=== PATIENT | male | born 1935 | race Caucasian/White ===

== ENCOUNTER 2017-12-20 18:01 | Inpatient (IN) | payer OTHER ==
[2017-12-20] MEDS: AZTREONAM 2 GM in SOD CHLORIDE 0.9% 100 ML IVPB (00:45)
[2017-12-20] MEDS: SOD CHLORIDE 0.9% 1,000 ML IV (05:00)
[2017-12-20] MEDS ORDERED: NACL 0.9% 3 ML SYG IV (21:30)
[2017-12-20] MEDS ORDERED: BISACODYL (EC) 5 MG TAB PO (21:30)
[2017-12-20] MEDS ORDERED: ONDANSETRON 4 MG INJ IV ×2 (21:30→22:30)
[2017-12-20] MEDS ORDERED: DOCUSATE SODIUM 100 MG CAP PO (21:30)
[2017-12-20] MEDS: FLUCONAZOLE 400 MG/NS (PMX) 200 ML IVPB (21:30)
[2017-12-20] MEDS ORDERED: VANCOMYCIN IV PER PHARMACY XX (21:30)
[2017-12-20] MEDS: SODIUM CHLORIDE 0.9% 1L BAG IV* (21:50)
[2017-12-20] MEDS: CEFEPIME 2GM/50 ML (PMX) 50 ML IVPB (21:51)
[2017-12-20 22:17] LABS: WHITE BLOOD COUNT 23.6 10^3/ul (4.8-10.8)
[2017-12-20 22:17] LABS: ABNORMAL IP MESSAGE 1; HEMATOCRIT 29.3 % (42.0-52.0); HEMOGLOBIN 9.3 g/dl (14.0-18.0); MEAN CORPUSCULAR HEMOGLOBIN 31.5 pg (29.0-33.0); MEAN CORPUSCULAR HGB CONC 31.7 g/dl (32.0-37.0); MEAN CORPUSCULAR VOLUME 99.3 fl (82.0-101.0); MEAN PLATELET VOLUME 12.1 fl (7.4-10.4); NUCLEATED RED BLOOD CELLS% 0.9 /100WBC (0.0-0.0); PLATELET COUNT 497 10^3/UL (140-415); POSITIVE DIFF @See below; RED BLOOD COUNT 2.95 10^6/ul (4.70-6.10); RED CELL DISTRIBUTION WIDTH 29.8 % (11.5-14.5)
[2017-12-20 22:22] LABS: ADD MAN DIFF? YES
[2017-12-20] MEDS ORDERED: ACETAMINOPHEN 325 MG TAB PO (22:30)
[2017-12-20 22:35] LABS: INR 1.53; PROTIME 18.7 Sec (11.9-14.9); PT RATIO 1.5
[2017-12-20 22:36] LABS: PARTIAL THROMBOPLASTIN TIME 45.2 Sec (25.0-35.0)
[2017-12-20] MEDS: VANCOMYCIN 1 GM (PMX) 250 ML IVPB (22:36)
[2017-12-20 22:38] LABS: ALANINE AMINOTRANSFERASE 60 IU/L (13-69); ALBUMIN 4.6 g/dl (3.3-4.9); ALBUMIN/GLOBULIN RATIO 1.64; ALKALINE PHOSPHATASE 68 IU/L (42-121); ANION GAP 18 (8-16); ASPARTATE AMINO TRANSFERASE 41 IU/L (15-46); BILIRUBIN,INDIRECT 3.1 mg/dl (0-1.1); BILIRUBIN,TOTAL 3.1 mg/dl (0.2-1.3); BLOOD UREA NITROGEN 30 mg/dl (7-20); CALCIUM 8.7 mg/dl (8.4-10.2); CARBON DIOXIDE 28 mmol/L (21-31); CHLORIDE 98 mmol/L (97-110); CREATININE 1.47 mg/dl (0.61-1.24); GLUCOSE 126 mg/dl (70-220); POTASSIUM 4.7 mmol/L (3.5-5.1); SODIUM 139 mmol/L (135-144); TOTAL PROTEIN 7.4 g/dl (6.1-8.1)
[2017-12-20 22:48] LABS: ADD UMIC YES; TROPONIN-I 0.115 ng/ml (0.00-0.12); UR ASCORBIC ACID NEGATIVE (NEGATIVE); UR BILIRUBIN (Dip) NEGATIVE (NEGATIVE); UR BLOOD (Dip) NEGATIVE (NEGATIVE); UR CLARITY SLIGHTLY CLOUDY (CLEAR); UR COLOR AMBER (YELLOW); UR GLUCOSE (Dip) NEGATIVE (NEGATIVE); UR KETONES (Dip) NEGATIVE (NEGATIVE); UR LEUKOCYTE ESTERASE (Dip) NEGATIVE Leu/ul (NEGATIVE); UR MUCUS FEW /HPF (NONE SEEN); UR NITRITE (Dip) NEGATIVE (NEGATIVE); UR RBC 0 /HPF (0-5); UR SPECIFIC GRAVITY (Dip) 1.019 (1.003-1.030); UR TOTAL PROTEIN (Dip) 2+ mg/dl (NEGATIVE); UR UROBILINOGEN (Dip) NEGATIVE (NEGATIVE); UR WBC 3 /HPF (0-5)
[2017-12-20 23:02] LABS: CK-MB 1.57 ng/ml (0.0-2.4)
[2017-12-20 23:02] LABS: CREATINE KINASE 141 IU/L (23-200)
[2017-12-20 23:48] LABS: ANISOCYTOSIS 1+ (0-0); BAND NEUTROPHILS #M 4.7 10^3/ul (0.0-0.6); BAND NEUTROPHILS % (M) 20 % (0-4); HYPOCHROMASIA 1+ (0-0); LYMPHOCYTES #M 0.7 10^3/ul (0.8-2.9); LYMPHOCYTES % (M) 3 % (15-51); MICROCYTOSIS 1+ (0-0); MONOCYTE #M 0.9 10^3/ul (0.3-0.9); MONOCYTES % (M) 4 % (0-11); PLATELET ESTIMATE INCREASED; POIKILOCYTOSIS 2+ (0-0); POLYCHROMASIA 3+ (0-0); SEG NEUT #M 18.3 10^3/ul (1.6-7.5); SEGMENTED NEUTROPHILS (M) % 73 % (39-77)
[2017-12-21 00:38] LABS: LACTIC ACID 1.2 mmol/L (0.5-2.0)
[2017-12-21] MEDS: LEVALBUTEROL (NEB) 0.63 MG/3 ML AMP HHN ×6 (00:46→20:22)
[2017-12-21] MEDS: HYDROCODONE/APAP (5/325) TAB PO (01:10)
[2017-12-21] MEDS: AZTREONAM 2 GM in SOD CHLORIDE 0.9% 100 ML IVPB (05:54)
[2017-12-21 06:24] LABS: ADD MAN DIFF? NO
[2017-12-21 06:26] LABS: WHITE BLOOD COUNT 23.5 10^3/ul (4.8-10.8)
[2017-12-21 06:26] LABS: ABNORMAL IP MESSAGE 1; BASOPHIL # 0.1 10^3/ul (0.0-0.1); BASOPHILS % 0.3 % (0.0-2.0); EOSINOPHILS % 0.1 % (0.0-7.0); HEMATOCRIT 26.4 % (42.0-52.0); HEMOGLOBIN 8.6 g/dl (14.0-18.0); LYMPHOCYTES # 0.4 10^3/ul (0.8-2.9); LYMPHOCYTES % 1.7 % (15.0-51.0); MEAN CORPUSCULAR HGB CONC 32.6 g/dl (32.0-37.0); MEAN CORPUSCULAR VOLUME 98.1 fl (82.0-101.0); MEAN PLATELET VOLUME 12.2 fl (7.4-10.4); MONOCYTE # 1.3 10^3/ul (0.3-0.9); MONOCYTES % 5.5 % (0.0-11.0); NEUTROPHIL # 21.4 10^3/ul (1.6-7.5); NEUTROPHILS % 91.5 % (39.0-77.0); NUCLEATED RED BLOOD CELLS # 0.2 10^3/ul (0.0-0.0); NUCLEATED RED BLOOD CELLS% 0.8 /100WBC (0.0-0.0); PLATELET COUNT 443 10^3/UL (140-415); POSITIVE DIFF @See below; RED BLOOD COUNT 2.69 10^6/ul (4.70-6.10); RED CELL DISTRIBUTION WIDTH 29.9 % (11.5-14.5)
[2017-12-21 07:19] LABS: TROPONIN-I 0.137 ng/ml (0.00-0.12)
[2017-12-21 07:36] LABS: ALANINE AMINOTRANSFERASE 60 IU/L (13-69); ALBUMIN 3.6 g/dl (3.3-4.9); ALBUMIN/GLOBULIN RATIO 1.56; ALKALINE PHOSPHATASE 68 IU/L (42-121); ANION GAP 22 (8-16); ASPARTATE AMINO TRANSFERASE 35 IU/L (15-46); BILIRUBIN,INDIRECT 2.4 mg/dl (0-1.1); BILIRUBIN,TOTAL 2.6 mg/dl (0.2-1.3); BLOOD UREA NITROGEN 26 mg/dl (7-20); CALCIUM 7.8 mg/dl (8.4-10.2); CARBON DIOXIDE 21 mmol/L (21-31); CHLORIDE 104 mmol/L (97-110); CREATININE 1.14 mg/dl (0.61-1.24); GLUCOSE 123 mg/dl (70-220); MAGNESIUM 2.2 mg/dl (1.7-2.5); POTASSIUM 4.7 mmol/L (3.5-5.1); SODIUM 142 mmol/L (135-144); TOTAL PROTEIN 5.9 g/dl (6.1-8.1)
[2017-12-21] MEDS: ACETAMINOPHEN 325 MG TAB PO (07:37)
[2017-12-21 07:55] LABS: CREATINE KINASE 87 IU/L (23-200)
[2017-12-21 08:04] LABS: CK INDEX 0.9
[2017-12-21 08:16] LABS: CK-MB 0.78 ng/ml (0.0-2.4)
[2017-12-21] MEDS: AZITHROMYCIN 500MG/NS (PMX) 250 ML IVPB (08:25)
[2017-12-21] MEDS: KETOROLAC 15 MG INJ IV (08:44)
[2017-12-21] MEDS ORDERED: ENOXAPARIN 40 MG/0.4 ML SYG SC (09:00)
[2017-12-21] MEDS: OSELTAMIVIR 75 MG CAP PO ×2 (09:00→21:25)
[2017-12-21] MEDS: CYANOCOBALAMIN 1000 MCG INJ IM (09:00)
[2017-12-21] MEDS: SOD CHLORIDE 0.9% 1,000 ML IV ×2 (09:47→22:17)
[2017-12-21] MEDS: FAMOTIDINE 20 MG TAB PO ×2 (11:34→21:25)
[2017-12-21] MEDS: PIPER-TAZO 3.375 GM IV (PMX) 100 ML IVPB ×3 (11:34→21:25)
[2017-12-21] MEDS: FINASTERIDE 5 MG TAB PO (11:35)
[2017-12-21] MEDS: VANCOMYCIN 750 MG in DEXTROSE 5% 150 ML IVPB ×2 (13:02→23:24)
[2017-12-21] MEDS ORDERED: DILTIAZEM-D5W 125MG/125ML DRIP 125 ML IV (14:30)
[2017-12-21] MEDS ORDERED: SOD CHLORIDE 0.9% 500 ML IV (14:32)
[2017-12-21] MEDS: DIGOXIN 500 MCG INJ IV (14:46)
[2017-12-21] MEDS: SOD CHLORIDE 0.9% 500 ML IV (15:15)
[2017-12-21 15:44] LABS: CREATINE KINASE 200 IU/L (23-200)
[2017-12-21 15:58] LABS: CK INDEX 1.1
[2017-12-21 16:01] LABS: CK-MB 2.19 ng/ml (0.0-2.4)
[2017-12-21] MEDS: FLUCONAZOLE 400 MG/NS (PMX) 200 ML IVPB (21:30)
[2017-12-21] MEDS ORDERED: VANCOMYCIN 1 GM 250 ML IVPB (23:00)
[2017-12-22] MEDS: LEVALBUTEROL (NEB) 0.63 MG/3 ML AMP HHN ×6 (00:45→20:12)
[2017-12-22] MEDS: PIPER-TAZO 3.375 GM IV (PMX) 100 ML IVPB ×3 (05:28→22:00)
[2017-12-22] MEDS: OSELTAMIVIR 75 MG CAP PO ×2 (09:07→21:32)
[2017-12-22] MEDS: FINASTERIDE 5 MG TAB PO (09:08)
[2017-12-22] MEDS: FOLIC ACID 1 MG TAB PO (09:08)
[2017-12-22] MEDS: ALLOPURINOL 100 MG TAB PO (09:08)
[2017-12-22] MEDS: CALCIUM CARBONATE 500 MG CHEW TAB PO ×3 (09:08→18:29)
[2017-12-22] MEDS: FAMOTIDINE 20 MG TAB PO ×2 (09:09→21:32)
[2017-12-22] MEDS: AZITHROMYCIN 500MG/NS (PMX) 250 ML IVPB (10:07)
[2017-12-22] MEDS: ACETAMINOPHEN 325 MG TAB PO ×2 (10:07→21:32)
[2017-12-22] MEDS: DILTIAZEM-D5W 125MG/125ML DRIP 125 ML IV (10:28)
[2017-12-22 10:35] LABS: ADD MAN DIFF? NO
[2017-12-22 10:40] LABS: WHITE BLOOD COUNT 15.2 10^3/ul (4.8-10.8)
[2017-12-22 10:40] LABS: ABNORMAL IP MESSAGE 1; BASOPHILS % 0.3 % (0.0-2.0); HEMATOCRIT 24.4 % (42.0-52.0); LYMPHOCYTES # 0.3 10^3/ul (0.8-2.9); LYMPHOCYTES % 1.8 % (15.0-51.0); MEAN CORPUSCULAR HEMOGLOBIN 32.3 pg (29.0-33.0); MEAN CORPUSCULAR HGB CONC 32.8 g/dl (32.0-37.0); MEAN CORPUSCULAR VOLUME 98.4 fl (82.0-101.0); MONOCYTE # 0.8 10^3/ul (0.3-0.9); MONOCYTES % 5.5 % (0.0-11.0); NEUTROPHIL # 13.9 10^3/ul (1.6-7.5); NEUTROPHILS % 91.6 % (39.0-77.0); NUCLEATED RED BLOOD CELLS # 0.1 10^3/ul (0.0-0.0); NUCLEATED RED BLOOD CELLS% 0.6 /100WBC (0.0-0.0); PLATELET COUNT 408 10^3/UL (140-415); POSITIVE DIFF @See below; RED BLOOD COUNT 2.48 10^6/ul (4.70-6.10); RED CELL DISTRIBUTION WIDTH 29.8 % (11.5-14.5)
[2017-12-22 11:02] LABS: ALANINE AMINOTRANSFERASE 59 IU/L (13-69); ALBUMIN 3.4 g/dl (3.3-4.9); ALBUMIN/GLOBULIN RATIO 1.21; ALKALINE PHOSPHATASE 78 IU/L (42-121); ANION GAP 15 (8-16); ASPARTATE AMINO TRANSFERASE 40 IU/L (15-46); BILIRUBIN,INDIRECT 1.2 mg/dl (0-1.1); BILIRUBIN,TOTAL 1.2 mg/dl (0.2-1.3); BLOOD UREA NITROGEN 25 mg/dl (7-20); CALCIUM 7.3 mg/dl (8.4-10.2); CARBON DIOXIDE 23 mmol/L (21-31); CHLORIDE 106 mmol/L (97-110); CREATININE 1.34 mg/dl (0.61-1.24); GLUCOSE 158 mg/dl (70-220); POTASSIUM 3.8 mmol/L (3.5-5.1); SODIUM 140 mmol/L (135-144); TOTAL PROTEIN 6.2 g/dl (6.1-8.1)
[2017-12-22 11:08] LABS: VANCOMYCIN,TROUGH 6.4 ug/ml (10.0-20.0)
[2017-12-22] MEDS: VANCOMYCIN 750 MG in DEXTROSE 5% 150 ML IVPB (11:30)
[2017-12-22] MEDS: EPOETIN 10000 UNITS/ML VIAL (ONCOLOGY) SC (12:37)
[2017-12-22] MEDS: DIGOXIN 0.125 MG TAB PO (12:38)
[2017-12-22] MEDS: SOD CHLORIDE 0.9% 1,000 ML IV (17:25)
[2017-12-22] MEDS: SOD FERRIC GLUC COMPLX 125 MG in SOD CHLORIDE 0.9% 100 ML IVPB (17:38)
[2017-12-22] MEDS: ATORVASTATIN 20 MG TAB PO (21:32)
[2017-12-22] MEDS: METOPROLOL 25 MG TAB PO (21:33)
[2017-12-22] MEDS: LATANOPROST 0.005% 2.5 ML OPH BOTH EYES (21:33)
[2017-12-22] MEDS: GUAIFENESIN 20 MG/ML 5ML CUP PO (21:41)
[2017-12-22] MEDS: FLUCONAZOLE 400 MG/NS (PMX) 200 ML IVPB (21:42)
[2017-12-22] MEDS: VANCOMYCIN 1.25 GM in SOD CHLORIDE 0.9% 250 ML IVPB (23:18)
[2017-12-23] MEDS: LEVALBUTEROL (NEB) 0.63 MG/3 ML AMP HHN ×5 (00:41→16:21)
[2017-12-23] MEDS: PIPER-TAZO 3.375 GM IV (PMX) 100 ML IVPB ×3 (05:59→22:06)
[2017-12-23 06:38] LABS: ADD MAN DIFF? NO
[2017-12-23 06:43] LABS: WHITE BLOOD COUNT 13.8 10^3/ul (4.8-10.8)
[2017-12-23 06:43] LABS: ABNORMAL IP MESSAGE 1; BASOPHIL # 0.1 10^3/ul (0.0-0.1); BASOPHILS % 0.4 % (0.0-2.0); EOSINOPHILS % 0.1 % (0.0-7.0); HEMATOCRIT 24.3 % (42.0-52.0); HEMOGLOBIN 7.7 g/dl (14.0-18.0); LYMPHOCYTES # 0.5 10^3/ul (0.8-2.9); LYMPHOCYTES % 3.6 % (15.0-51.0); MEAN CORPUSCULAR HEMOGLOBIN 31.6 pg (29.0-33.0); MEAN CORPUSCULAR HGB CONC 31.7 g/dl (32.0-37.0); MEAN CORPUSCULAR VOLUME 99.6 fl (82.0-101.0); MEAN PLATELET VOLUME 12.8 fl (7.4-10.4); MONOCYTES % 7.5 % (0.0-11.0); NEUTROPHIL # 12.1 10^3/ul (1.6-7.5); NEUTROPHILS % 87.5 % (39.0-77.0); NUCLEATED RED BLOOD CELLS # 0.1 10^3/ul (0.0-0.0); NUCLEATED RED BLOOD CELLS% 0.4 /100WBC (0.0-0.0); PLATELET COUNT 396 10^3/UL (140-415); POSITIVE DIFF @See below; RED BLOOD COUNT 2.44 10^6/ul (4.70-6.10); RED CELL DISTRIBUTION WIDTH 31.1 % (11.5-14.5)
[2017-12-23 07:10] LABS: MAGNESIUM 2.5 mg/dl (1.7-2.5)
[2017-12-23 07:19] LABS: ANION GAP 16 (8-16); BLOOD UREA NITROGEN 35 mg/dl (7-20); CALCIUM 7.5 mg/dl (8.4-10.2); CARBON DIOXIDE 22 mmol/L (21-31); CHLORIDE 107 mmol/L (97-110); CREATININE 1.85 mg/dl (0.61-1.24); GLUCOSE 155 mg/dl (70-220); SODIUM 141 mmol/L (135-144)
[2017-12-23] MEDS: FAMOTIDINE 20 MG TAB PO ×2 (08:30→21:00)
[2017-12-23] MEDS: FINASTERIDE 5 MG TAB PO (08:30)
[2017-12-23] MEDS: ALLOPURINOL 100 MG TAB PO (08:30)
[2017-12-23] MEDS: ASPIRIN 81 MG TAB PO (08:31)
[2017-12-23] MEDS: CALCIUM CARBONATE 500 MG CHEW TAB PO ×4 (08:31→22:04)
[2017-12-23] MEDS: OSELTAMIVIR 75 MG CAP PO (08:31)
[2017-12-23] MEDS: FOLIC ACID 1 MG TAB PO (08:31)
[2017-12-23] MEDS: METOPROLOL 25 MG TAB PO ×2 (08:32→22:05)
[2017-12-23] MEDS: AZITHROMYCIN 500MG/NS (PMX) 250 ML IVPB (08:33)
[2017-12-23] MEDS: GUAIFENESIN 20 MG/ML 5ML CUP PO (08:40)
[2017-12-23] MEDS: TAMSULOSIN (SR) 0.4 MG CAP PO ×2 (10:13→22:04)
[2017-12-23] MEDS: VANCOMYCIN 1.25 GM in SOD CHLORIDE 0.9% 250 ML IVPB (10:13)
[2017-12-23] MEDS: VANCOMYCIN 1 GM 250 ML IVPB (10:34)
[2017-12-23 12:18] LABS: HEMATOCRIT 25.5 % (42.0-52.0); HEMOGLOBIN 8.1 g/dl (14.0-18.0)
[2017-12-23] MEDS: DIGOXIN 0.125 MG TAB PO (13:00)
[2017-12-23] MEDS: EPOETIN 4000 UNITS/ML VIAL (ONCOLOGY) SC (15:29)
[2017-12-23] MEDS: SOD CHLORIDE 0.9% 1,000 ML IV (16:44)
[2017-12-23] MEDS ORDERED: SOD FERRIC GLUC COMPLX 125 MG in SOD CHLORIDE 0.9% 100 ML IVPB (17:00)
[2017-12-23] MEDS: SOD FERRIC GLUC COMPLX 125 MG in SOD CHLORIDE 0.9% 100 ML IVPB (17:18)
[2017-12-23] MEDS ORDERED: FAMOTIDINE 20 MG TAB PO (21:00)
[2017-12-23] MEDS: ATORVASTATIN 20 MG TAB PO (22:04)
[2017-12-23] MEDS: LATANOPROST 0.005% 2.5 ML OPH BOTH EYES (22:04)
[2017-12-24] MEDS: LEVALBUTEROL (NEB) 0.63 MG/3 ML AMP HHN ×3 (01:00→15:39)
[2017-12-24] MEDS: AZITHROMYCIN 500MG/NS (PMX) 250 ML IVPB (07:37)
[2017-12-24] MEDS: PIPER-TAZO 3.375 GM IV (PMX) 100 ML IVPB ×3 (07:44→21:56)
[2017-12-24 08:03] LABS: ADD MAN DIFF? NO
[2017-12-24 08:08] LABS: ABNORMAL IP MESSAGE 1; BASOPHIL # 0.1 10^3/ul (0.0-0.1); BASOPHILS % 0.5 % (0.0-2.0); EOSINOPHILS # 0.1 10^3/ul (0.0-0.5); EOSINOPHILS % 0.6 % (0.0-7.0); HEMATOCRIT 25.5 % (42.0-52.0); HEMOGLOBIN 8.2 g/dl (14.0-18.0); LYMPHOCYTES # 0.6 10^3/ul (0.8-2.9); LYMPHOCYTES % 3.8 % (15.0-51.0); MEAN CORPUSCULAR HEMOGLOBIN 31.4 pg (29.0-33.0); MEAN CORPUSCULAR HGB CONC 32.2 g/dl (32.0-37.0); MEAN CORPUSCULAR VOLUME 97.7 fl (82.0-101.0); MEAN PLATELET VOLUME 11.8 fl (7.4-10.4); MONOCYTE # 1.1 10^3/ul (0.3-0.9); MONOCYTES % 7.1 % (0.0-11.0); NEUTROPHIL # 13.7 10^3/ul (1.6-7.5); NEUTROPHILS % 85.9 % (39.0-77.0); NUCLEATED RED BLOOD CELLS # 0.1 10^3/ul (0.0-0.0); NUCLEATED RED BLOOD CELLS% 0.6 /100WBC (0.0-0.0); PLATELET COUNT 493 10^3/UL (140-415); POSITIVE DIFF @See below; RED BLOOD COUNT 2.61 10^6/ul (4.70-6.10); RED CELL DISTRIBUTION WIDTH 30.4 % (11.5-14.5)
[2017-12-24] MEDS: TAMSULOSIN (SR) 0.4 MG CAP PO ×2 (08:26→20:53)
[2017-12-24] MEDS: ASPIRIN 81 MG TAB PO (08:26)
[2017-12-24] MEDS: FAMOTIDINE 20 MG TAB PO ×2 (08:26→20:54)
[2017-12-24] MEDS: FOLIC ACID 1 MG TAB PO (08:26)
[2017-12-24 08:27] LABS: ALANINE AMINOTRANSFERASE 119 IU/L (13-69); ALBUMIN 3.4 g/dl (3.3-4.9); ALBUMIN/GLOBULIN RATIO 1.13; ALKALINE PHOSPHATASE 151 IU/L (42-121); ANION GAP 16 (8-16); ASPARTATE AMINO TRANSFERASE 71 IU/L (15-46); BILIRUBIN,INDIRECT 0.5 mg/dl (0-1.1); BILIRUBIN,TOTAL 0.5 mg/dl (0.2-1.3); BLOOD UREA NITROGEN 36 mg/dl (7-20); CALCIUM 7.9 mg/dl (8.4-10.2); CARBON DIOXIDE 23 mmol/L (21-31); CHLORIDE 109 mmol/L (97-110); CREATININE 2.25 mg/dl (0.61-1.24); GLUCOSE 150 mg/dl (70-220); POTASSIUM 3.8 mmol/L (3.5-5.1); SODIUM 144 mmol/L (135-144); TOTAL PROTEIN 6.4 g/dl (6.1-8.1)
[2017-12-24] MEDS: ALLOPURINOL 100 MG TAB PO (08:27)
[2017-12-24] MEDS: FINASTERIDE 5 MG TAB PO (08:27)
[2017-12-24] MEDS: METOPROLOL 25 MG TAB PO ×2 (08:27→20:54)
[2017-12-24 08:30] LABS: PHOSPHORUS 3.3 mg/dl (2.5-4.9)
[2017-12-24 08:30] LABS: MAGNESIUM 2.7 mg/dl (1.7-2.5)
[2017-12-24] MEDS: CALCIUM CARBONATE 500 MG CHEW TAB PO ×2 (12:44→18:33)
[2017-12-24] MEDS: DIGOXIN 0.125 MG TAB PO (12:45)
[2017-12-24] MEDS: SOD CHLORIDE 0.9% 1,000 ML IV (16:44)
[2017-12-24] MEDS: SOD FERRIC GLUC COMPLX 125 MG in SOD CHLORIDE 0.9% 100 ML IVPB (17:01)
[2017-12-24] MEDS: LATANOPROST 0.005% 2.5 ML OPH BOTH EYES (20:53)
[2017-12-24] MEDS: ATORVASTATIN 20 MG TAB PO (20:54)
[2017-12-24 23:19] LABS: CREATININE,URINE RANDOM 144.25 mg/dl (20-370); PROTEIN/CREAT RATIO 0.87 RATIO
[2017-12-24 23:20] LABS: SODIUM,URINE RANDOM < 13 mmol/L (30-90)
[2017-12-25] MEDS: LEVALBUTEROL (NEB) 0.63 MG/3 ML AMP HHN ×4 (00:21→23:03)
[2017-12-25] MEDS: PIPER-TAZO 3.375 GM IV (PMX) 100 ML IVPB ×3 (05:46→22:12)
[2017-12-25 08:49] LABS: ABNORMAL IP MESSAGE 1; HEMATOCRIT 26.2 % (42.0-52.0); HEMOGLOBIN 8.4 g/dl (14.0-18.0); MEAN CORPUSCULAR HEMOGLOBIN 31.6 pg (29.0-33.0); MEAN CORPUSCULAR HGB CONC 32.1 g/dl (32.0-37.0); MEAN CORPUSCULAR VOLUME 98.5 fl (82.0-101.0); MEAN PLATELET VOLUME 11.9 fl (7.4-10.4); NUCLEATED RED BLOOD CELLS% 1.2 /100WBC (0.0-0.0); PLATELET COUNT 619 10^3/UL (140-415); POSITIVE DIFF @See below; RED BLOOD COUNT 2.66 10^6/ul (4.70-6.10); RED CELL DISTRIBUTION WIDTH 30.6 % (11.5-14.5)
[2017-12-25 08:51] LABS: ADD MAN DIFF? YES
[2017-12-25] MEDS: FAMOTIDINE 20 MG TAB PO ×2 (08:51→20:30)
[2017-12-25] MEDS: FOLIC ACID 1 MG TAB PO (08:51)
[2017-12-25] MEDS: ALLOPURINOL 100 MG TAB PO (08:51)
[2017-12-25] MEDS: TAMSULOSIN (SR) 0.4 MG CAP PO ×2 (08:51→20:31)
[2017-12-25] MEDS: ASPIRIN 81 MG TAB PO (08:52)
[2017-12-25] MEDS: CALCIUM CARBONATE 500 MG CHEW TAB PO ×3 (08:52→17:40)
[2017-12-25] MEDS: FINASTERIDE 5 MG TAB PO (08:52)
[2017-12-25] MEDS: METOPROLOL 25 MG TAB PO (08:53)
[2017-12-25] MEDS: AZITHROMYCIN 500MG/NS (PMX) 250 ML IVPB (08:53)
[2017-12-25 09:20] LABS: MAGNESIUM 2.7 mg/dl (1.7-2.5)
[2017-12-25 09:22] LABS: URIC ACID 6.9 mg/dl (3.1-7.9)
[2017-12-25 09:22] LABS: CREATINE KINASE 62 IU/L (23-200)
[2017-12-25 09:24] LABS: ANION GAP 17 (8-16); BLOOD UREA NITROGEN 37 mg/dl (7-20); CALCIUM 8.3 mg/dl (8.4-10.2); CARBON DIOXIDE 24 mmol/L (21-31); CHLORIDE 109 mmol/L (97-110); CREATININE 1.91 mg/dl (0.61-1.24); GLUCOSE 163 mg/dl (70-220); POTASSIUM 4.4 mmol/L (3.5-5.1); SODIUM 146 mmol/L (135-144)
[2017-12-25 10:20] LABS: ANISOCYTOSIS 2+ (0-0); BAND NEUTROPHILS #M 3.5 10^3/ul (0.0-0.6); BAND NEUTROPHILS % (M) 16 % (0-4); BURR CELLS 1+ (0-0); ERYTHROBLAST% (NRBC) (M) 1 % (0-0); GIANT THROMBO% (M) 2 % (0-0); LYMPHOCYTES #M 1.1 10^3/ul (0.8-2.9); LYMPHOCYTES % (M) 5 % (15-51); MONOCYTE #M 0.8 10^3/ul (0.3-0.9); MONOCYTES % (M) 4 % (0-11); PLATELET ESTIMATE INCREASED; POIKILOCYTOSIS 2+ (0-0); POLYCHROMASIA 3+ (0-0); REACTIVE LYMPHOCYTES #M 0.4 10^3/ul (0.0-0.0); REACTIVE LYMPHOCYTES% (M) 2 % (0-0); SCHISTOCYTES 1+ (0-0); SEG NEUT #M 16.8 10^3/ul (1.6-7.5); SEGMENTED NEUTROPHILS (M) % 73 % (39-77); SMUDGE%M 2 % (0-0); TARGET CELLS 1+ (0-0)
[2017-12-25] MEDS: DIGOXIN 0.125 MG TAB PO (13:13)
[2017-12-25] MEDS: DEXTROSE 5%-0.45% NACL 1,000 ML IV ×2 (13:34→23:50)
[2017-12-25] MEDS: SOD CHLORIDE 0.9% 1,000 ML IV (17:42)
[2017-12-25] MEDS: ATORVASTATIN 20 MG TAB PO (20:30)
[2017-12-25] MEDS: METOPROLOL 50 MG TAB PO (20:31)
[2017-12-25] MEDS: LATANOPROST 0.005% 2.5 ML OPH BOTH EYES (20:31)
[2017-12-26] MEDS: DEXTROSE 5%-0.45% NACL 1,000 ML IV (05:42)
[2017-12-26] MEDS: PIPER-TAZO 3.375 GM IV (PMX) 100 ML IVPB ×2 (05:42→13:03)
[2017-12-26 07:48] LABS: ADD MAN DIFF? NO
[2017-12-26 07:54] LABS: ABNORMAL IP MESSAGE 1; BASOPHIL # 0.3 10^3/ul (0.0-0.1); BASOPHILS % 1.3 % (0.0-2.0); EOSINOPHILS # 0.4 10^3/ul (0.0-0.5); EOSINOPHILS % 1.7 % (0.0-7.0); HEMATOCRIT 24.5 % (42.0-52.0); HEMOGLOBIN 7.8 g/dl (14.0-18.0); LYMPHOCYTES # 0.7 10^3/ul (0.8-2.9); LYMPHOCYTES % 3.1 % (15.0-51.0); MEAN CORPUSCULAR HEMOGLOBIN 31.3 pg (29.0-33.0); MEAN CORPUSCULAR HGB CONC 31.8 g/dl (32.0-37.0); MEAN CORPUSCULAR VOLUME 98.4 fl (82.0-101.0); MEAN PLATELET VOLUME 11.9 fl (7.4-10.4); MONOCYTE # 1.6 10^3/ul (0.3-0.9); MONOCYTES % 6.8 % (0.0-11.0); NEUTROPHIL # 17.4 10^3/ul (1.6-7.5); NEUTROPHILS % 75.7 % (39.0-77.0); NUCLEATED RED BLOOD CELLS # 0.4 10^3/ul (0.0-0.0); NUCLEATED RED BLOOD CELLS% 1.7 /100WBC (0.0-0.0); PLATELET COUNT 630 10^3/UL (140-415); POSITIVE DIFF @See below; RED BLOOD COUNT 2.49 10^6/ul (4.70-6.10); RED CELL DISTRIBUTION WIDTH 31.5 % (11.5-14.5)
[2017-12-26] MEDS: AZITHROMYCIN 500MG/NS (PMX) 250 ML IVPB (07:54)
[2017-12-26 08:09] LABS: MAGNESIUM 2.5 mg/dl (1.7-2.5)
[2017-12-26 08:09] LABS: PHOSPHORUS 2.6 mg/dl (2.5-4.9)
[2017-12-26 08:14] LABS: ALANINE AMINOTRANSFERASE 112 IU/L (13-69); ALBUMIN 3.2 g/dl (3.3-4.9); ALBUMIN/GLOBULIN RATIO 1.06; ALKALINE PHOSPHATASE 166 IU/L (42-121); ANION GAP 16 (8-16); ASPARTATE AMINO TRANSFERASE 53 IU/L (15-46); BILIRUBIN,INDIRECT 0.5 mg/dl (0-1.1); BILIRUBIN,TOTAL 0.5 mg/dl (0.2-1.3); BLOOD UREA NITROGEN 30 mg/dl (7-20); CALCIUM 8.2 mg/dl (8.4-10.2); CARBON DIOXIDE 26 mmol/L (21-31); CHLORIDE 109 mmol/L (97-110); GLUCOSE 174 mg/dl (70-220); POTASSIUM 3.9 mmol/L (3.5-5.1); SODIUM 147 mmol/L (135-144); TOTAL PROTEIN 6.2 g/dl (6.1-8.1)
[2017-12-26] MEDS: ALLOPURINOL 100 MG TAB PO (08:14)
[2017-12-26] MEDS: TAMSULOSIN (SR) 0.4 MG CAP PO ×2 (08:14→20:18)
[2017-12-26] MEDS: CALCIUM CARBONATE 500 MG CHEW TAB PO ×3 (08:14→18:00)
[2017-12-26] MEDS: FINASTERIDE 5 MG TAB PO (08:14)
[2017-12-26] MEDS: FOLIC ACID 1 MG TAB PO (08:14)
[2017-12-26] MEDS: FAMOTIDINE 20 MG TAB PO ×2 (08:14→21:06)
[2017-12-26] MEDS: ASPIRIN 81 MG TAB PO (08:14)
[2017-12-26] MEDS: METOPROLOL 50 MG TAB PO ×2 (08:15→20:19)
[2017-12-26] MEDS: LEVALBUTEROL (NEB) 0.63 MG/3 ML AMP HHN ×3 (09:29→23:55)
[2017-12-26 10:33] LABS: ANISOCYTOSIS 2+ (0-0); BAND NEUTROPHILS #M 0.9 10^3/ul (0.0-0.6); BAND NEUTROPHILS % (M) 4 % (0-4); ERYTHROBLAST% (NRBC) (M) 2 % (0-0); GIANT THROMBO% (M) 4 % (0-0); LYMPHOCYTES #M 0.9 10^3/ul (0.8-2.9); LYMPHOCYTES % (M) 4 % (15-51); METAMYELOCYTES #M 0.6 10^3/ul (0.0-0.0); METAMYELOCYTES %M 3 % (0-0); MONOCYTE #M 0.4 10^3/ul (0.3-0.9); MONOCYTES % (M) 2 % (0-11); MYELOCYTES #M 1.6 10^3/ul (0.0-0.0); MYELOCYTES % (M) 7 % (0-0); PLATELET ESTIMATE INCREASED; POIKILOCYTOSIS 2+ (0-0); POLYCHROMASIA 1+ (0-0); SEG NEUT #M 18.6 10^3/ul (1.6-7.5); SEGMENTED NEUTROPHILS (M) % 80 % (39-77); TARGET CELLS 1+ (0-0)
[2017-12-26 10:54] LABS: Allen Test ACCEPTAB
[2017-12-26] MEDS: FERROUS SULFATE (EC) 325 MG TAB PO ×2 (11:14→20:18)
[2017-12-26 12:19] LABS: AADO2 Arterial 54.4 mmHg (7.0-24.0); Arterial Base Excess -4.2 mmol/L (-3.0-3); Arterial Blood Gas Oxygen Sat 86.2 mmHG (95.0-100.0); Arterial COHb 0.1 % (0.0-3.0); Arterial Fraction of Oxyhgb 85.9 % (93.0-99.0); Arterial HCO3 19.9 mmol/L (22.0-26.0); Arterial MetHb 0.2 % (0.0-1.5); Arterial Total Hemglobin 11.8 g/dl (12.0-18.0); Arterial pCO2 33.2 mmhg (35-45); MODE ROOM AIR; Site Left Radial
[2017-12-26] MEDS: DIGOXIN 0.125 MG TAB PO (12:40)
[2017-12-26] MEDS: SOD CHLORIDE 0.9% 250 ML IV* (14:43)
[2017-12-26] MEDS: SOD CHLORIDE 0.9% 1,000 ML IV (16:38)
[2017-12-26] MEDS: GUAIFENESIN 20 MG/ML 5ML CUP PO (17:02)
[2017-12-26] MEDS: DILTIAZEM 30 MG TAB PO (17:03)
[2017-12-26 20:13] LABS: IMMEDIATE SPIN CROSSMATCH 1 2
[2017-12-26] MEDS: ATORVASTATIN 20 MG TAB PO (20:18)
[2017-12-26] MEDS: LATANOPROST 0.005% 2.5 ML OPH BOTH EYES (20:20)
[2017-12-27] MEDS: PIPER-TAZO 3.375 GM IV (PMX) 100 ML IVPB ×2 (00:53→06:33)
[2017-12-27] MEDS: SOD CHLORIDE 0.9% 500 ML IV (06:25)
[2017-12-27] MEDS: AZITHROMYCIN 500MG/NS (PMX) 250 ML IVPB (07:48)
[2017-12-27 07:49] LABS: WHITE BLOOD COUNT 34.4 10^3/ul (4.8-10.8)
[2017-12-27 07:49] LABS: ABNORMAL IP MESSAGE 1; MEAN CORPUSCULAR HEMOGLOBIN 30.3 pg (29.0-33.0); MEAN CORPUSCULAR HGB CONC 31.8 g/dl (32.0-37.0); MEAN CORPUSCULAR VOLUME 95.2 fl (82.0-101.0); MEAN PLATELET VOLUME 11.6 fl (7.4-10.4); NUCLEATED RED BLOOD CELLS% 2.6 /100WBC (0.0-0.0); PLATELET COUNT 714 10^3/UL (140-415); POSITIVE DIFF @See below; RED CELL DISTRIBUTION WIDTH 29.8 % (11.5-14.5)
[2017-12-27 08:07] LABS: ADD MAN DIFF? YES; HEMATOCRIT 31.4 % (42.0-52.0)
[2017-12-27 08:11] LABS: ALANINE AMINOTRANSFERASE 113 IU/L (13-69); ALBUMIN 3.4 g/dl (3.3-4.9); ALBUMIN/GLOBULIN RATIO 1.13; ALKALINE PHOSPHATASE 166 IU/L (42-121); ANION GAP 11 (8-16); ASPARTATE AMINO TRANSFERASE 55 IU/L (15-46); BILIRUBIN,INDIRECT 0.6 mg/dl (0-1.1); BILIRUBIN,TOTAL 0.6 mg/dl (0.2-1.3); BLOOD UREA NITROGEN 30 mg/dl (7-20); CALCIUM 8.7 mg/dl (8.4-10.2); CARBON DIOXIDE 28 mmol/L (21-31); CHLORIDE 112 mmol/L (97-110); CREATININE 1.32 mg/dl (0.61-1.24); GLUCOSE 167 mg/dl (70-220); POTASSIUM 4.4 mmol/L (3.5-5.1); SODIUM 147 mmol/L (135-144); TOTAL PROTEIN 6.4 g/dl (6.1-8.1)
[2017-12-27 08:13] LABS: MAGNESIUM 2.3 mg/dl (1.7-2.5)
[2017-12-27 08:13] LABS: PHOSPHORUS 2.7 mg/dl (2.5-4.9)
[2017-12-27] MEDS: LEVALBUTEROL (NEB) 0.63 MG/3 ML AMP HHN ×4 (08:13→23:46)
[2017-12-27 08:58] LABS: ANISOCYTOSIS 2+ (0-0); BAND NEUTROPHILS % (M) 3 % (0-4); EOSINOPHILS % (M) 2 % (0-7); ERYTHROBLAST% (NRBC) (M) 3 % (0-0); GIANT THROMBO% (M) 3 % (0-0); LYMPHOCYTES % (M) 3 % (15-51); METAMYELOCYTES %M 3 % (0-0); MICROCYTOSIS 1+ (0-0); MYELOCYTES #M 3.4 10^3/ul (0.0-0.0); MYELOCYTES % (M) 10 % (0-0); OVALOCYTES 1+ (0-0); PLATELET ESTIMATE INCREASED; PLATELET MORPHOLOGY COMMENT @See below; POIKILOCYTOSIS 1+ (0-0); POLYCHROMASIA 3+ (0-0); PROMYELOCYTES #M 0.3 10^3/ul (0-0); PROMYELOCYTES % (M) 1 % (0-0); REACTIVE LYMPHOCYTES #M 0.3 10^3/ul (0.0-0.0); REACTIVE LYMPHOCYTES% (M) 1 % (0-0); SEG NEUT #M 26.8 10^3/ul (1.6-7.5); SEGMENTED NEUTROPHILS (M) % 77 % (39-77); TARGET CELLS 1+ (0-0)
[2017-12-27] MEDS: FOLIC ACID 1 MG TAB PO (09:21)
[2017-12-27] MEDS: FINASTERIDE 5 MG TAB PO (09:21)
[2017-12-27] MEDS: ALLOPURINOL 100 MG TAB PO (09:21)
[2017-12-27] MEDS: METOPROLOL 50 MG TAB PO ×2 (09:22→20:50)
[2017-12-27] MEDS: FERROUS SULFATE (EC) 325 MG TAB PO ×2 (09:22→20:49)
[2017-12-27] MEDS: ASPIRIN 81 MG TAB PO (09:22)
[2017-12-27] MEDS: CALCIUM CARBONATE 500 MG CHEW TAB PO ×3 (09:22→17:53)
[2017-12-27] MEDS: FAMOTIDINE 20 MG TAB PO ×2 (09:22→20:49)
[2017-12-27] MEDS: TAMSULOSIN (SR) 0.4 MG CAP PO ×2 (09:31→20:49)
[2017-12-27] MEDS: DIGOXIN 0.125 MG TAB PO (12:57)
[2017-12-27] MEDS: LEVOFLOXACIN 750 MG TABLET PO (15:02)
[2017-12-27] MEDS: ATORVASTATIN 20 MG TAB PO (20:49)
[2017-12-27] MEDS: LATANOPROST 0.005% 2.5 ML OPH BOTH EYES (20:50)
[2017-12-27] MEDS: GUAIFENESIN 20 MG/ML 5ML CUP PO (20:58)
[2017-12-28] MEDS: SOD CHLORIDE 0.9% 500 ML IV (06:00)
[2017-12-28] MEDS: LEVALBUTEROL (NEB) 0.63 MG/3 ML AMP HHN ×4 (08:15→23:58)
[2017-12-28] MEDS: TAMSULOSIN (SR) 0.4 MG CAP PO ×2 (08:35→22:42)
[2017-12-28] MEDS: CALCIUM CARBONATE 500 MG CHEW TAB PO ×3 (08:35→18:38)
[2017-12-28] MEDS: FAMOTIDINE 20 MG TAB PO ×2 (08:36→22:42)
[2017-12-28] MEDS: LEVOFLOXACIN 750 MG TABLET PO (08:36)
[2017-12-28] MEDS: FERROUS SULFATE (EC) 325 MG TAB PO ×2 (08:36→22:42)
[2017-12-28] MEDS: ASPIRIN 81 MG TAB PO (08:36)
[2017-12-28] MEDS: FINASTERIDE 5 MG TAB PO (08:36)
[2017-12-28] MEDS: FOLIC ACID 1 MG TAB PO (08:36)
[2017-12-28] MEDS: ALLOPURINOL 100 MG TAB PO (08:36)
[2017-12-28] MEDS: METOPROLOL 50 MG TAB PO ×2 (08:37→22:44)
[2017-12-28 08:43] LABS: ABNORMAL IP MESSAGE 1; MEAN CORPUSCULAR HEMOGLOBIN 30.4 pg (29.0-33.0); MEAN CORPUSCULAR HGB CONC 31.3 g/dl (32.0-37.0); MEAN CORPUSCULAR VOLUME 97.3 fl (82.0-101.0); MEAN PLATELET VOLUME 11.4 fl (7.4-10.4); NUCLEATED RED BLOOD CELLS% 2.3 /100WBC (0.0-0.0); POSITIVE DIFF @See below; RED BLOOD COUNT 3.29 10^6/ul (4.70-6.10); RED CELL DISTRIBUTION WIDTH 30.1 % (11.5-14.5)
[2017-12-28 08:43] LABS: WHITE BLOOD COUNT 29.8 10^3/ul (4.8-10.8)
[2017-12-28 08:58] LABS: ADD MAN DIFF? YES
[2017-12-28 09:09] LABS: ANION GAP 15 (8-16); BLOOD UREA NITROGEN 33 mg/dl (7-20); CALCIUM 8.7 mg/dl (8.4-10.2); CARBON DIOXIDE 29 mmol/L (21-31); CHLORIDE 109 mmol/L (97-110); CREATININE 1.44 mg/dl (0.61-1.24); GLUCOSE 107 mg/dl (70-220); POTASSIUM 4.5 mmol/L (3.5-5.1); SODIUM 148 mmol/L (135-144)
[2017-12-28 09:11] LABS: MAGNESIUM 2.2 mg/dl (1.7-2.5)
[2017-12-28 10:10] LABS: BAND NEUTROPHILS #M 2.9 10^3/ul (0.0-0.6); BAND NEUTROPHILS % (M) 10 % (0-4); EOSINOPHILS # 0.9 10^3/ul (0.0-0.5); EOSINOPHILS % (M) 3 % (0.0-7.0); ERYTHROBLAST% (NRBC) (M) 3 % (0-0); LYMPHOCYTES # 1.2 10^3/ul (0.8-2.9); LYMPHOCYTES #M 1.1 10^3/ul (0.8-2.9); LYMPHOCYTES % (M) 4 % (15-51); METAMYELOCYTES #M 0.5 10^3/ul (0.0-0.0); METAMYELOCYTES %M 2 % (0-0); MONOCYTE # 0.9 10^3/ul (0.3-0.9); MONOCYTE #M 0.8 10^3/ul (0.3-0.9); MONOCYTES % (M) 3 % (0-11); MYELOCYTES #M 3.8 10^3/ul (0.0-0.0); MYELOCYTES % (M) 13 % (0-0); PROMYELOCYTES #M 1.1 10^3/ul (0-0); PROMYELOCYTES % (M) 4 % (0-0); SEGMENTED NEUTROPHILS (M) % 61 % (39-77)
[2017-12-28 10:11] LABS: PLATELET COUNT 695 10^3/UL (140-415)
[2017-12-28] MEDS: SALMETEROL/FLUTICASONE 250/50 INHA INH ×2 (11:06→22:42)
[2017-12-28] MEDS: TIOTROPIUM 18 MCG CAPSULE INHA DEV INH (11:06)
[2017-12-28] MEDS: DIGOXIN 0.125 MG TAB PO (13:15)
[2017-12-28] MEDS: DEXTROSE 5% 1,000 ML IV (16:22)
[2017-12-28] MEDS: ATORVASTATIN 20 MG TAB PO (22:42)
[2017-12-28] MEDS: LATANOPROST 0.005% 2.5 ML OPH BOTH EYES (22:42)
[2017-12-29] MEDS: LEVALBUTEROL (NEB) 0.63 MG/3 ML AMP HHN (07:49)
[2017-12-29] MEDS: LEVOFLOXACIN 750 MG TABLET PO (08:28)
[2017-12-29] MEDS: CALCIUM CARBONATE 500 MG CHEW TAB PO ×2 (08:28→12:35)
[2017-12-29] MEDS: FOLIC ACID 1 MG TAB PO (08:29)
[2017-12-29] MEDS: FERROUS SULFATE (EC) 325 MG TAB PO (08:29)
[2017-12-29] MEDS: ALLOPURINOL 100 MG TAB PO (08:29)
[2017-12-29] MEDS: TAMSULOSIN (SR) 0.4 MG CAP PO (08:29)
[2017-12-29] MEDS: METOPROLOL 50 MG TAB PO (08:29)
[2017-12-29] MEDS: FAMOTIDINE 20 MG TAB PO (08:29)
[2017-12-29] MEDS: ASPIRIN 81 MG TAB PO (08:29)
[2017-12-29] MEDS: FINASTERIDE 5 MG TAB PO (08:29)
[2017-12-29] MEDS: TIOTROPIUM 18 MCG CAPSULE INHA DEV INH (08:29)
[2017-12-29] MEDS: SALMETEROL/FLUTICASONE 250/50 INHA INH (08:30)
[2017-12-29 08:33] LABS: ABNORMAL IP MESSAGE 1; HEMATOCRIT 32.8 % (42.0-52.0); HEMOGLOBIN 10.2 g/dl (14.0-18.0); MEAN CORPUSCULAR HEMOGLOBIN 30.9 pg (29.0-33.0); MEAN CORPUSCULAR HGB CONC 31.1 g/dl (32.0-37.0); MEAN CORPUSCULAR VOLUME 99.4 fl (82.0-101.0); MEAN PLATELET VOLUME 11.6 fl (7.4-10.4); NUCLEATED RED BLOOD CELLS% 1.2 /100WBC (0.0-0.0); PLATELET COUNT 655 10^3/UL (140-415); POSITIVE DIFF @See below; RED CELL DISTRIBUTION WIDTH 28.7 % (11.5-14.5)
[2017-12-29 08:33] LABS: WHITE BLOOD COUNT 26.1 10^3/ul (4.8-10.8)
[2017-12-29 08:55] LABS: ADD MAN DIFF? YES
[2017-12-29 09:03] LABS: ANION GAP 13 (8-16); BLOOD UREA NITROGEN 33 mg/dl (7-20); CALCIUM 8.9 mg/dl (8.4-10.2); CARBON DIOXIDE 29 mmol/L (21-31); CHLORIDE 107 mmol/L (97-110); CREATININE 1.37 mg/dl (0.61-1.24); GLUCOSE 103 mg/dl (70-220); POTASSIUM 4.3 mmol/L (3.5-5.1); SODIUM 145 mmol/L (135-144)
[2017-12-29 09:41] LABS: ANISOCYTOSIS 2+ (0-0); BAND NEUTROPHILS #M 1.8 10^3/ul (0.0-0.6); BAND NEUTROPHILS % (M) 7 % (0-4); ELLIPTO 1+ (0-0); EOSINOPHILS % (M) 3 % (0-7); ERYTHROBLAST% (NRBC) (M) 1 % (0-0); HYPOCHROMASIA 1+ (0-0); LYMPHOCYTES #M 1.8 10^3/ul (0.8-2.9); LYMPHOCYTES % (M) 7 % (15-51); METAMYELOCYTES #M 1.3 10^3/ul (0.0-0.0); METAMYELOCYTES %M 5 % (0-0); MICROCYTOSIS 1+ (0-0); MONOCYTE #M 0.5 10^3/ul (0.3-0.9); MONOCYTES % (M) 2 % (0-11); MYELOCYTES #M 3.6 10^3/ul (0.0-0.0); MYELOCYTES % (M) 14 % (0-0); PLATELET ESTIMATE INCREASED; POIKILOCYTOSIS 2+ (0-0); POLYCHROMASIA 3+ (0-0); PROMYELOCYTES #M 0.5 10^3/ul (0-0); PROMYELOCYTES % (M) 2 % (0-0); SEG NEUT #M 16.1 10^3/ul (1.6-7.5); SEGMENTED NEUTROPHILS (M) % 60 % (39-77); SMUDGE%M 1 % (0-0); TEAR DROP CELLS 1+ (0-0)
[2017-12-29] MEDS: DIGOXIN 0.125 MG TAB PO (12:35)
== END 2017-12-29 14:16 | disposition home health service (06) | DRG 871 ==
LOC: TEL 21:25 → E/R 18:01
DX: A41.9 Sepsis, unspecified organism (principal); J18.9 Pneumonia, unspecified organism; J96.01 Acute respiratory failure with hypoxia; N17.0 Acute kidney failure with tubular necrosis; I48.92 Unspecified atrial flutter; E86.0 Dehydration; Z99.81 Dependence on supplemental oxygen; I48.91 Unspecified atrial fibrillation; J43.9 Emphysema, unspecified; D46.9 Myelodysplastic syndrome, unspecified; N14.1 Nephropathy induced by other drugs, medicaments and biological substances; R55 Syncope and collapse; R65.20 Severe sepsis without septic shock; N40.1 Benign prostatic hyperplasia with lower urinary tract symptoms; R33.8 Other retention of urine; T36.8X5A Adverse effect of other systemic antibiotics, initial encounter; Y92.230 Patient room in hospital as the place of occurrence of the external cause; Y95 Nosocomial condition; H40.9 Unspecified glaucoma; R35.0 Frequency of micturition; Z87.891 Personal history of nicotine dependence
CPT/HCPCS: 36415; 36430; 36600; 71045; 71250; 76775; 80048; 80053; 80202; 81001; 81003; 82550; 82553; 82570; 82803; 83605; 83735; 84100; 84300; 84484; 84560; 85014; 85018; 85025; 85610; 85730; 86850; 86900; 86901; 86920; 87040; 87070; 87081; 87086; 87400; 89190; 93005; 93306; 93970; 94640; 94664; 96365; 96366; 96367; 96372; 96375; 96376; 97110; 97116; 97161; 99291-25; J0885

== ENCOUNTER 2018-06-27 01:24 | Emergency (ER) | payer OTHER ==
[2018-06-27 02:33] LABS: URINE BLOOD (Dip) POC 3+ (NEGATIVE); URINE GLUCOSE (Dip) POC Negative (NEGATIVE); URINE KETONES (Dip) POC Negative (NEGATIVE); URINE LEUKOCYTE EST (Dip) POC 3+ (NEGATIVE); URINE NITRITE (Dip) POC Positive (NEGATIVE); URINE TOTAL PROTEIN POC 2+ (NEGATIVE)
== END 2018-06-27 03:08 | disposition home or self-care (01) ==
LOC: E/R 01:24
DX: N39.0 Urinary tract infection, site not specified (principal); R40.2142 Coma scale, eyes open, spontaneous, at arrival to emergency department; R40.2252 Coma scale, best verbal response, oriented, at arrival to emergency department; R40.2362 Coma scale, best motor response, obeys commands, at arrival to emergency department; Z87.891 Personal history of nicotine dependence
CPT/HCPCS: 51702; 81003; 99284-25